=== PATIENT | female | born 1945 | race Caucasian/White ===

== ENCOUNTER 2020-08-01 14:42 | Inpatient (IN) | payer OTHER, MEDICAID ==
[~2020-08-01] VITALS: Ht 160 cm; Wt 93.5 kg
[2020-08-01 18:08] LABS: Basophils # (auto) 0 10 ^3/uL (0-0.2); Basophils % (auto) 0.4 % (0.0-2.0); Eosinophils # (auto) 0 10 ^3/uL (0-0.8); Eosinophils % (auto) 0.1 % (0.0-7.0); Hematocrit 40.9 % (36.0-46.0); Hemoglobin 13.6 g/dL (12.2-16.2); Lymphocytes % (auto) 29.1 % (10.0-50.0); Mean Corpuscular Hemoglobin 30.9 pg (28.0-32.0); Mean Corpuscular Hgb Conc. 33.3 g/dL (32.0-36.0); Mean Corpuscular Volume 92.7 fL (80.0-100.0); Monocytes # (auto) 0.4 10 ^3/uL (0-1.3); Monocytes % (auto) 11.6 % (0.0-12.0); Neutrophils % (auto) 58.8 % (37.0-80.0); Nucleated Red Blood Cells % 0.5 %; Platelet Count (auto) 157 10^3/uL (140-450); Red Blood Cells 4.41 10^6/uL (4.0-5.20); Red Cell Distribution Width 12.9 % (11.8-14.3); White Blood Cell 3.4 10^3/uL (4.4-10.8)
[2020-08-01 18:30] LABS: Alanine Aminotransferase 22 U/L (13-56); Albumin 3.4 g/dL (3.4-5.0); Anion Gap 9 (5-15); Aspartate Aminotransferase 18 U/L (15-37); Blood Urea Nitrogen 16 mg/dL (7-18); Calcium 8.7 mg/dL (8.5-10.1); Carbon Dioxide 28 mmol/L (21-32); Chloride 99 mmol/L (98-107); GFR African American 70 mL/min; GFR Non-African American 57 mL/min; Glucose 77 mg/dL (74-106); Potassium 3.3 mmol/L (3.5-5.1); Sodium 136 mmol/L (136-145)
[2020-08-01 18:34] LABS: Alkaline Phosphatase 65 U/L (45-117); Bilirubin, Total 0.4 mg/dL (0.2-1.0); Total Protein 7.4 g/dL (6.4-8.2)
[2020-08-02] MEDS ORDERED: MORPHINE SULF INJ 2 MG/ML SYRINGE 1ML IV PRN (00:45)
[2020-08-02] MEDS ORDERED: ACETAMINOPHEN 325 MG TAB PO PRN (00:45)
[2020-08-02] MEDS ORDERED: NITROGLYCERIN 0.4 MG SL TAB SL PRN (00:45)
[2020-08-02] MEDS ORDERED: ONDANSETRON HCL 4 MG/2 ML VIAL IV PRN (00:45)
[2020-08-02] MEDS ORDERED: IPRATROPIUM BROM 0.5 MG/2.5ML INH SOL NEB PRN (02:45)
[2020-08-02] MEDS ORDERED: ALBUTEROL SULF 2.5 MG/0.5ML(0.5%) NEB SOLN NEB PRN (02:45)
[2020-08-02 02:48] LABS: Urine Bacteria NONE SEEN /hpf (None Seen); Urine Blood Negative /uL (Negative); Urine Mucus FEW (None Seen); Urine Specific Gravity 1.025 (1.001-1.035); Urine WBC 5 /hpf (0 - 5)
[2020-08-02 08:00] VITALS: BP 118/56
[2020-08-02] MEDS ORDERED: ENOXAPARIN SOD 40 MG/0.4 ML SYRINGE SC SCH (10:00)
[2020-08-02] MEDS ORDERED: methylPREDNISolone SOD SUCC 40 MG/ML VL IV SCH (10:00)
[2020-08-02] MEDS: cefTRIAXone 1GM/50ML D5W 50 ML IV SCH (11:48)
[2020-08-02] MEDS: AZITHROMYCIN 500MG/ 250ML 250 ML IV SCH (11:50)
[2020-08-02] MEDS ORDERED: ENOXAPARIN SOD 80 MG/0.8ML SYRINGE SC ONE (13:15)
[2020-08-02] MEDS ORDERED: ZINC SULFATE 220mg CAP or TAB PO ONE (13:15)
[2020-08-02] MEDS ORDERED: POTASSIUM CHL 20MEQ/100ML 100 ML IV ONE ×2 (13:15→17:08)
[2020-08-02 14:39] LABS: Basophils # (auto) 0 10 ^3/uL (0-0.2); Basophils % (auto) 0.1 % (0.0-2.0); Eosinophils # (auto) 0 10 ^3/uL (0-0.8); Hematocrit 37.7 % (36.0-46.0); Hemoglobin 12.9 g/dL (12.2-16.2); Lymphocytes # (auto) 0.8 10 ^3/uL (0.4-5.4); Lymphocytes % (auto) 18.6 % (10.0-50.0); Mean Corpuscular Hemoglobin 31.4 pg (28.0-32.0); Mean Corpuscular Hgb Conc. 34.1 g/dL (32.0-36.0); Mean Corpuscular Volume 92.2 fL (80.0-100.0); Monocytes # (auto) 0.4 10 ^3/uL (0-1.3); Monocytes % (auto) 8.5 % (0.0-12.0); Neutrophils % (auto) 72.8 % (37.0-80.0); Platelet Count (auto) 157 10^3/uL (140-450); Red Blood Cells 4.09 10^6/uL (4.0-5.20); Red Cell Distribution Width 12.8 % (11.8-14.3); White Blood Cell 4.2 10^3/uL (4.4-10.8)
[2020-08-02 15:05] LABS: BUN/Creatinine Ratio 17.4; Calcium 8.6 mg/dL (8.5-10.1)
[2020-08-02] MEDS: ALBUTEROL SULF HFA 90MCG INH 200DOSE IN SCH ×2 (15:26→22:00)
[2020-08-02 15:31] LABS: Potassium 2.7 mmol/L (3.5-5.1)
[2020-08-02] MEDS: POTASSIUM CHL 20MEQ/100ML 100 ML IV SCH ×2 (17:25→21:06)
[2020-08-02 20:50] VITALS: BP 149/70
[2020-08-02 21:00] VITALS: BP 149/70
[2020-08-02] MEDS: ASCORBIC ACID 500 MG TAB PO SCH (21:08)
[2020-08-02] MEDS: ENOXAPARIN SOD 40 MG/0.4 ML SYRINGE SC SCH (21:21)
[2020-08-02] MEDS ORDERED: BUDESONIDE (INHALATION) 0.5 MG/2 ML NEB NEB SCH (22:00)
[2020-08-02] MEDS: BUDESONIDE (INHALATION) 180 MCG IH IN SCH (22:00)
[2020-08-03 05:00] VITALS: BP 126/55
[2020-08-03] MEDS: BUDESONIDE (INHALATION) 180 MCG IH IN SCH ×2 (06:47→21:29)
[2020-08-03] MEDS: ALBUTEROL SULF HFA 90MCG INH 200DOSE IN SCH ×3 (06:47→21:28)
[2020-08-03 07:12] LABS: Basophils # (auto) 0 10 ^3/uL (0-0.2); Basophils % (auto) 0.1 % (0.0-2.0); Eosinophils # (auto) 0 10 ^3/uL (0-0.8); Hematocrit 36.3 % (36.0-46.0); Hemoglobin 12.1 g/dL (12.2-16.2); Lymphocytes # (auto) 0.9 10 ^3/uL (0.4-5.4); Lymphocytes % (auto) 20.7 % (10.0-50.0); Mean Corpuscular Hemoglobin 30.7 pg (28.0-32.0); Mean Corpuscular Hgb Conc. 33.3 g/dL (32.0-36.0); Mean Corpuscular Volume 92.2 fL (80.0-100.0); Monocytes # (auto) 0.6 10 ^3/uL (0-1.3); Neutrophils % (auto) 66.2 % (37.0-80.0); Platelet Count (auto) 172 10^3/uL (140-450); Red Blood Cells 3.94 10^6/uL (4.0-5.20); Red Cell Distribution Width 13.1 % (11.8-14.3); White Blood Cell 4.5 10^3/uL (4.4-10.8)
[2020-08-03 07:27] LABS: Calcium 8.5 mg/dL (8.5-10.1); Magnesium 2.1 mg/dL (1.6-2.6)
[2020-08-03 07:45] LABS: BUN/Creatinine Ratio 21.3; Phosphorus 2.1 mg/dL (2.5-4.90)
[2020-08-03 09:00] VITALS: BP 108/52
[2020-08-03] MEDS: DexAMETHasone SOD PHOS 10MG/1ML VIAL INJ IV SCH (11:25)
[2020-08-03] MEDS: cefTRIAXone 1GM/50ML D5W 50 ML IV SCH (11:26)
[2020-08-03] MEDS: AZITHROMYCIN 500MG/ 250ML 250 ML IV SCH (11:26)
[2020-08-03] MEDS: ZINC SULFATE 220mg CAP or TAB PO SCH (11:27)
[2020-08-03] MEDS: ASCORBIC ACID 500 MG TAB PO SCH ×2 (11:27→22:04)
[2020-08-03] MEDS: CHOLECALCIFEROL (VITD3) 2,000 UNIT CAP PO SCH (11:36)
[2020-08-03] MEDS: ENOXAPARIN SOD 40 MG/0.4 ML SYRINGE SC SCH (11:36)
[2020-08-03 13:00] VITALS: BP 117/51
[2020-08-03 17:00] VITALS: BP 112/49
[2020-08-03] MEDS ORDERED: POTA-220 PO (17:03)
[2020-08-03] MEDS ORDERED: GABA300C10 PO (17:03)
[2020-08-03] MEDS ORDERED: SOTA80TA PO (17:03)
[2020-08-03] MEDS ORDERED: OMEP20TA PO (17:03)
[2020-08-03] MEDS ORDERED: APIX5TAB PO (17:03)
[2020-08-03] MEDS ORDERED: IBUP800T24 PO (17:03)
[2020-08-03] MEDS ORDERED: HYDR25TA4 PO (17:03)
[2020-08-03] MEDS ORDERED: OXYB5TAB24 PO (17:03)
[2020-08-03] MEDS ORDERED: SERT-274 PO (17:03)
[2020-08-03] MEDS ORDERED: FLUT0.05 NAS (17:03)
[2020-08-03] MEDS ORDERED: REMDESIVIR 200 MG in NS 210ml LOADING DOSE ADULT IV ONE (18:00)
[2020-08-03] MEDS ORDERED: ACETAMINOPHEN 325 MG TAB PO PRN (19:15)
[2020-08-03] MEDS ORDERED: HYDROcodone-ACET 5/325MG TAB PO PRN (19:15)
[2020-08-03 21:00] VITALS: BP 115/60
[2020-08-03] MEDS: OXYBUTYNIN CHL 5 MG TAB PO SCH (22:03)
[2020-08-03] MEDS: APIXABAN 5 MG TAB PO SCH (22:04)
[2020-08-04] MEDS: SOTALOL HCL 80 MG TAB PO SCH ×3 (02:26→21:50)
[2020-08-04 05:00] VITALS: BP 129/62
[2020-08-04] MEDS: BUDESONIDE (INHALATION) 180 MCG IH IN SCH ×2 (07:15→22:08)
[2020-08-04] MEDS: ALBUTEROL SULF HFA 90MCG INH 200DOSE IN SCH ×3 (07:15→22:08)
[2020-08-04 07:36] LABS: Basophils # (auto) 0 10 ^3/uL (0-0.2); Eosinophils # (auto) 0 10 ^3/uL (0-0.8); Hematocrit 35.6 % (36.0-46.0); Lymphocytes # (auto) 0.9 10 ^3/uL (0.4-5.4); Lymphocytes % (auto) 16.1 % (10.0-50.0); Mean Corpuscular Hemoglobin 31.2 pg (28.0-32.0); Mean Corpuscular Hgb Conc. 33.8 g/dL (32.0-36.0); Mean Corpuscular Volume 92.5 fL (80.0-100.0); Monocytes # (auto) 0.6 10 ^3/uL (0-1.3); Monocytes % (auto) 11.7 % (0.0-12.0); Neutrophils # (auto) 3.8 10 ^3/uL (1.6-8.6); Neutrophils % (auto) 72.2 % (37.0-80.0); Nucleated Red Blood Cells % 0.1 %; Platelet Count (auto) 191 10^3/uL (140-450); Red Blood Cells 3.85 10^6/uL (4.0-5.20); Red Cell Distribution Width 13.2 % (11.8-14.3); White Blood Cell 5.3 10^3/uL (4.4-10.8)
[2020-08-04 08:07] LABS: BUN/Creatinine Ratio 19.7; Calcium 8.5 mg/dL (8.5-10.1); Magnesium 2.2 mg/dL (1.6-2.6); Phosphorus 2.8 mg/dL (2.5-4.90); Potassium 3.4 mmol/L (3.5-5.1)
[2020-08-04 09:00] VITALS: BP 121/58
[2020-08-04] MEDS: cefTRIAXone 1GM/50ML D5W 50 ML IV SCH (09:00)
[2020-08-04] MEDS: ASCORBIC ACID 500 MG TAB PO SCH ×2 (10:00→21:57)
[2020-08-04] MEDS: GABAPENTIN 300 MG CAP PO SCH (10:00)
[2020-08-04] MEDS: OXYBUTYNIN CHL 5 MG TAB PO SCH ×2 (10:00→21:50)
[2020-08-04] MEDS: AZITHROMYCIN 500MG/ 250ML 250 ML IV SCH (10:00)
[2020-08-04] MEDS: DexAMETHasone SOD PHOS 10MG/1ML VIAL INJ IV SCH (10:00)
[2020-08-04] MEDS: ZINC SULFATE 220mg CAP or TAB PO SCH (10:00)
[2020-08-04] MEDS: APIXABAN 5 MG TAB PO SCH ×2 (10:00→21:50)
[2020-08-04] MEDS: SERTRALINE HCL 50 MG TAB PO SCH (10:00)
[2020-08-04] MEDS: CHOLECALCIFEROL (VITD3) 2,000 UNIT CAP PO SCH (10:00)
[2020-08-04] MEDS: PANTOPRAZOLE 40 MG TAB PO SCH (10:00)
[2020-08-04] MEDS ORDERED: PANT40T PO (12:16)
[2020-08-04] MEDS ORDERED: ZINC220C8 PO (12:16)
[2020-08-04] MEDS ORDERED: AZIT500T66 PO (12:16)
[2020-08-04] MEDS ORDERED: CHOL1CAP47 PO (12:16)
[2020-08-04] MEDS ORDERED: DEXA6TAB6 PO (12:16)
[2020-08-04] MEDS ORDERED: ASCO500T11 PO (12:16)
[2020-08-04] MEDS ORDERED: ALBUAER3 IN (12:16)
[2020-08-04 13:00] VITALS: BP 124/62
[2020-08-04 17:00] VITALS: BP 112/54
[2020-08-04] MEDS: REMDESIVIR 100mg in NS 230ml DAILYx4DAYS (NO VENT) IV SCH (17:00)
[2020-08-04 22:00] VITALS: BP 120/70
[2020-08-05 05:00] VITALS: BP 122/62
[2020-08-05] MEDS: ALBUTEROL SULF HFA 90MCG INH 200DOSE IN SCH ×2 (07:07→13:39)
[2020-08-05] MEDS: BUDESONIDE (INHALATION) 180 MCG IH IN SCH (07:07)
[2020-08-05 08:00] LABS: Potassium 3.3 mmol/L (3.5-5.1)
[2020-08-05] MEDS ORDERED: POTASSIUM EFFERVESENT TAB 25 MEQ PO ONE (08:00)
[2020-08-05 08:02] LABS: Basophils # (auto) 0 10 ^3/uL (0-0.2); Basophils % (auto) 0.1 % (0.0-2.0); Eosinophils # (auto) 0 10 ^3/uL (0-0.8); Lymphocytes # (auto) 1.1 10 ^3/uL (0.4-5.4); Lymphocytes % (auto) 25.2 % (10.0-50.0); Mean Corpuscular Hemoglobin 31.7 pg (28.0-32.0); Mean Corpuscular Hgb Conc. 34.3 g/dL (32.0-36.0); Mean Corpuscular Volume 92.5 fL (80.0-100.0); Monocytes # (auto) 0.7 10 ^3/uL (0-1.3); Monocytes % (auto) 14.9 % (0.0-12.0); Neutrophils # (auto) 2.7 10 ^3/uL (1.6-8.6); Neutrophils % (auto) 59.8 % (37.0-80.0); Nucleated Red Blood Cells % 0.1 %; Platelet Count (auto) 202 10^3/uL (140-450); Red Blood Cells 3.79 10^6/uL (4.0-5.20); Red Cell Distribution Width 13.2 % (11.8-14.3); White Blood Cell 4.5 10^3/uL (4.4-10.8)
[2020-08-05 08:06] LABS: Magnesium 2.2 mg/dL (1.6-2.6); Phosphorus 2.3 mg/dL (2.5-4.90)
[2020-08-05 08:07] LABS: Albumin 2.6 g/dL (3.4-5.0); BUN/Creatinine Ratio 19.2; Bilirubin, Total 0.3 mg/dL (0.2-1.0); Calcium 8.3 mg/dL (8.5-10.1); Total Protein 5.5 g/dL (6.4-8.2)
[2020-08-05] MEDS: cefTRIAXone 1GM/50ML D5W 50 ML IV SCH (09:03)
[2020-08-05] MEDS: DexAMETHasone SOD PHOS 10MG/1ML VIAL INJ IV SCH (09:03)
[2020-08-05 09:04] VITALS: BP 122/62
[2020-08-05] MEDS: SOTALOL HCL 80 MG TAB PO SCH (09:04)
[2020-08-05] MEDS: AZITHROMYCIN 500MG/ 250ML 250 ML IV SCH (09:04)
[2020-08-05] MEDS: ZINC SULFATE 220mg CAP or TAB PO SCH (09:04)
[2020-08-05] MEDS: GABAPENTIN 300 MG CAP PO SCH (09:05)
[2020-08-05] MEDS: OXYBUTYNIN CHL 5 MG TAB PO SCH (09:05)
[2020-08-05] MEDS: APIXABAN 5 MG TAB PO SCH (09:05)
[2020-08-05] MEDS: SERTRALINE HCL 50 MG TAB PO SCH (09:05)
[2020-08-05] MEDS: PANTOPRAZOLE 40 MG TAB PO SCH (09:05)
[2020-08-05] MEDS: CHOLECALCIFEROL (VITD3) 2,000 UNIT CAP PO SCH (09:06)
[2020-08-05 09:18] VITALS: BP 120/59
[2020-08-05] MEDS: ASCORBIC ACID 500 MG TAB PO SCH (10:00)
[2020-08-05 13:00] VITALS: BP 132/61
[2020-08-05] MEDS: REMDESIVIR 100mg in NS 230ml DAILYx4DAYS (NO VENT) IV SCH (17:16)
== END 2020-08-05 21:23 | disposition home health service (06) | DRG 177 ==
LOC: EDBD 14:42 → ER 14:42 → TELE 14:43 → TELE-E-ADS 08-02 20:21
PROVIDERS: ADMIT Internal Medicine; ATTEND Internal Medicine
PROC: XW033E5 Introduction of Remdesivir Anti-infective into Peripheral Vein, Percutaneous Approach, New Technology Group 5 (ICD-10-PCS; principal; 2020-08-03)
DX: U07.1 COVID-19 (principal); J12.89 Other viral pneumonia; J96.11 Chronic respiratory failure with hypoxia; J44.1 Chronic obstructive pulmonary disease with (acute) exacerbation; J98.11 Atelectasis; R64 Cachexia; J44.0 Chronic obstructive pulmonary disease with (acute) lower respiratory infection; J45.901 Unspecified asthma with (acute) exacerbation; Z68.1 Body mass index [BMI] 19.9 or less, adult; I10 Essential (primary) hypertension; E78.5 Hyperlipidemia, unspecified; I48.0 Paroxysmal atrial fibrillation; K44.9 Diaphragmatic hernia without obstruction or gangrene; F32.9 Major depressive disorder, single episode, unspecified; I67.2 Cerebral atherosclerosis; E87.6 Hypokalemia; I70.0 Atherosclerosis of aorta; I25.10 Atherosclerotic heart disease of native coronary artery without angina pectoris; Z90.710 Acquired absence of both cervix and uterus; Z79.899 Other long term (current) drug therapy; Z88.0 Allergy status to penicillin; Z90.49 Acquired absence of other specified parts of digestive tract; Z99.81 Dependence on supplemental oxygen
CPT/HCPCS: 36415; 36600; 70450; 71045; 71250; 80048; 80053; 81001; 82805; 83605; 83735; 84100; 84484; 85025; 85379; 86141; 87426; 93005; 94640; 96361; 96365; 96368; 96372; G0378; J0696; J1100; J3480

== ENCOUNTER 2024-07-07 19:16 | Inpatient (IN) | payer OTHER, MEDICAID ==
[~2024-07-07] VITALS: Ht 172.7 cm; Wt 94.6 kg
[~2024-07-07 19:16] MED LIST: ALBUAER3 IN; APIX5TAB PO; CHOL1CAP47 PO; CYCL-614 PO; GABA-1250 PO; HYDR-4902 PO; HYDR25TA4 PO; IBU600T PO; LEVO500T91 PO; NALO1TAB4 PO; OXYB5TAB24 PO; PANT40T PO; POTA-220 PO; SERT-206 PO; SOTA80TA PO; VITA400T4 PO
[2024-07-07 20:23] LABS: Basophils # (auto) 0 10 ^3/uL (0-0.2); Basophils % (auto) 0.2 % (0.0-2.0); Eosinophils # (auto) 0.1 10 ^3/uL (0-0.8); Eosinophils % (auto) 1.8 % (0.0-7.0); Hematocrit 35.4 % (36.0-46.0); Hemoglobin 11.6 g/dL (12.2-16.2); Lymphocytes % (auto) 29.8 % (10.0-50.0); Mean Corpuscular Hemoglobin 30.3 pg (28.0-32.0); Mean Corpuscular Hgb Conc. 32.7 g/dL (32.0-36.0); Mean Corpuscular Volume 92.6 fL (80.0-100.0); Monocytes # (auto) 0.8 10 ^3/uL (0-1.3); Monocytes % (auto) 11.2 % (0.0-12.0); Neutrophils # (auto) 3.9 10 ^3/uL (1.6-8.6); Platelet Count (auto) 247 10^3/uL (140-450); Red Blood Cells 3.82 10^6/uL (4.0-5.20); White Blood Cell 6.8 10^3/uL (4.4-10.8)
[2024-07-07 20:41] LABS: Alanine Aminotransferase 16 U/L (7-40); Alkaline Phosphatase 69 U/L (46-116); Anion Gap 7 (5-15); Aspartate Aminotransferase 9 U/L (13-40); BUN/Creatinine Ratio 22.2 (10.0-20.0); Blood Urea Nitrogen 24 mg/dL (9-23); Calcium 9.8 mg/dL (8.7-10.4); Carbon Dioxide 27 mmol/L (20-31); Chloride 100 mmol/L (98-107); Glucose 99 mg/dL (74-106); Magnesium 1.9 mg/dL (1.6-2.6); Potassium 3.8 mmol/L (3.5-5.1); Sodium 134 mmol/L (136-145)
[2024-07-07 20:42] LABS: Bilirubin, Total 0.3 mg/dL (0.2-1.0); Total Protein 6.4 g/dL (5.7-8.2)
[2024-07-07 20:44] LABS: INR 1.03 (0.9-1.15); Partial Thromboplastin Time 25.7 SEC (24.5-34.5); Prothrombin Time 10.9 sec (9.3-11.8)
[2024-07-07 21:38] LABS: Urine Bacteria None Seen /hpf (None Seen)
[2024-07-07 21:47] LABS: Urine Blood Negative /uL (Negative); Urine Clarity Clear (Clear); Urine Color Light-Yellow (Yellow); Urine Protein, UAD Negative (Negative); Urine Specific Gravity 1.017 (1.001-1.035); Urine Urobilinogen Normal (Negative); Urine WBC 3 /hpf (0 - 5)
[2024-07-07] MEDS ORDERED: MORPHINE SULFATE INJ 2 MG/ml SYRG IV PRN (23:00)
[2024-07-07] MEDS ORDERED: ONDANSETRON HCL 4 MG/2 ML VIAL IV PRN (23:00)
[2024-07-07] MEDS ORDERED: NITROGLYCERIN 0.4 MG SL TAB SL PRN (23:00)
[2024-07-07] MEDS ORDERED: ACETAMINOPHEN 325 MG TAB PO PRN (23:00)
[2024-07-07] MEDS: HYDROcodone-ACET 5/325MG TAB PO PRN (23:26)
[2024-07-08] VITALS (13 sets, daily range): BP systolic 112–142; BP diastolic 62–82; PULSE 54–117; RESP 16–18; TEMP 97.4–98.1; O2SAT 90–100
[2024-07-08] MEDS: SODIUM CHLORIDE 0.9% 1,000 ML IV SCH (02:15)
[2024-07-08] MEDS: SODIUM CHLOR 0.9% PF (SALINE LOCK) 10ML VIAL/SYR IV SCH (06:00)
[2024-07-08] MEDS ORDERED: ENOXAPARIN SOD 40 MG/0.4 ML SYRINGE SC SCH (10:00)
[2024-07-08 10:08] LABS: Alanine Aminotransferase 10 U/L (7-40); Albumin 3.9 g/dL (3.2-4.8); Alkaline Phosphatase 63 U/L (46-116); Anion Gap 8 (5-15); Aspartate Aminotransferase 10 U/L (13-40); Carbon Dioxide 27 mmol/L (20-31); Chloride 100 mmol/L (98-107); Glucose 123 mg/dL (74-106); Potassium 3.2 mmol/L (3.5-5.1); Sodium 135 mmol/L (136-145); Total Protein 6.5 g/dL (5.7-8.2)
[2024-07-08 10:09] LABS: BUN/Creatinine Ratio 18.9 (10.0-20.0); Blood Urea Nitrogen 20 mg/dL (9-23); Cholesterol 162 mg/dL (< 200); LDL Cholesterol 97 mg/dL (< 100); Magnesium 1.9 mg/dL (1.6-2.6); Triglycerides 144 mg/dL (< 150)
[2024-07-08 10:10] LABS: HDL Cholesterol 51 mg/dL (40-59)
[2024-07-08 10:11] LABS: Bilirubin, Total 0.8 mg/dL (0.2-1.0)
[2024-07-08 10:16] LABS: Amphetamine Screen, Urine Neg (NEGATIVE); Barbiturate Scree,Urine Neg (NEGATIVE); Benzodiazephine Screen, Urine Neg (NEGATIVE); Cocaine Screen, Urine Neg (NEGATIVE)
[2024-07-08 10:17] LABS: Cannabinoid Screen, Urine Neg (NEGATIVE); Opiate Scree,Urine Neg (NEGATIVE); Phencyclidine Screen, Urine Neg (NEGATIVE)
[2024-07-08 10:18] LABS: Basophils # (auto) 0 10 ^3/uL (0-0.2); Basophils % (auto) 0.5 % (0.0-2.0); Eosinophils # (auto) 0.1 10 ^3/uL (0-0.8); Hematocrit 35.4 % (36.0-46.0); Hemoglobin 11.9 g/dL (12.2-16.2); Lymphocytes # (auto) 2.5 10 ^3/uL (0.4-5.4); Lymphocytes % (auto) 39.4 % (10.0-50.0); Mean Corpuscular Hemoglobin 30.9 pg (28.0-32.0); Mean Corpuscular Hgb Conc. 33.6 g/dL (32.0-36.0); Mean Corpuscular Volume 92.1 fL (80.0-100.0); Monocytes # (auto) 0.6 10 ^3/uL (0-1.3); Monocytes % (auto) 10.3 % (0.0-12.0); Neutrophils % (auto) 47.8 % (37.0-80.0); Nucleated Red Blood Cells % 0.1 %; Platelet Count (auto) 234 10^3/uL (140-450); Red Blood Cells 3.84 10^6/uL (4.0-5.20); Red Cell Distribution Width 14.2 % (11.8-14.3); White Blood Cell 6.2 10^3/uL (4.4-10.8)
[2024-07-08] MEDS: APIXABAN 5 MG TAB PO SCH (10:28)
[2024-07-08] MEDS: methylPREDNISolone SOD SUCC 40 MG/ML VL IM ONE (19:42)
[2024-07-08] MEDS: MAGNESIUM SULFATE 1GM/100ML 100 ML IV ONE (19:43)
[2024-07-08] MEDS: POTASSIUM EFFERVESENT TAB 25 MEQ GT ONE (19:43)
[2024-07-08] MEDS: AZITHROMYCIN 500MG/ 250ML 250 ML IV ONE (21:03)
[2024-07-08] MEDS: POTASSIUM CHL 20MEQ/100ML 100 ML IV SCH (23:24)
[2024-07-09] VITALS (16 sets, daily range): BP systolic 65–148; BP diastolic 23–89; PULSE 87–117; RESP 16–20; TEMP 97.4–97.9; O2SAT 90–100
[2024-07-09 00:56] LABS: COVID19 ANTIGEN SOFIA FIA NEGATIVE (NEGATIVE)
[2024-07-09] MEDS: IPRATROPIUM BROM 0.5 MG/2.5ML INH SOL NEB PRN (07:14)
[2024-07-09] MEDS: ALBUTEROL SULF 2.5 MG/0.5ML(0.5%) NEB SOLN NEB PRN (07:15)
[2024-07-09 07:57] LABS: Basophils # (auto) 0 10 ^3/uL (0-0.2); Basophils % (auto) 0.2 % (0.0-2.0); Eosinophils # (auto) 0 10 ^3/uL (0-0.8); Hematocrit 37.3 % (36.0-46.0); Hemoglobin 12.7 g/dL (12.2-16.2); Lymphocytes # (auto) 1.4 10 ^3/uL (0.4-5.4); Mean Corpuscular Hgb Conc. 33.9 g/dL (32.0-36.0); Mean Corpuscular Volume 91.6 fL (80.0-100.0); Monocytes # (auto) 0.5 10 ^3/uL (0-1.3); Monocytes % (auto) 6.9 % (0.0-12.0); Neutrophils # (auto) 5.5 10 ^3/uL (1.6-8.6); Neutrophils % (auto) 73.9 % (37.0-80.0); Nucleated Red Blood Cells % 0.1 %; Platelet Count (auto) 253 10^3/uL (140-450); Red Blood Cells 4.08 10^6/uL (4.0-5.20); Red Cell Distribution Width 14.1 % (11.8-14.3); White Blood Cell 7.4 10^3/uL (4.4-10.8)
[2024-07-09 08:00] LABS: Anion Gap 9 (5-15); Calcium 10.3 mg/dL (8.7-10.4); Carbon Dioxide 23 mmol/L (20-31); Chloride 103 mmol/L (98-107); Potassium 4.4 mmol/L (3.5-5.1); Sodium 135 mmol/L (136-145)
[2024-07-09] MEDS: POTASSIUM CHL 20MEQ/100ML 100 ML IV ONE (08:05)
[2024-07-09 08:06] LABS: BUN/Creatinine Ratio 16.8 (10.0-20.0); Blood Urea Nitrogen 17 mg/dL (9-23); Glucose 130 mg/dL (74-106)
[2024-07-09] MEDS: methylPREDNISolone SOD SUCC 40 MG/ML VL IV SCH (10:48)
[2024-07-09] MEDS: AZITHROMYCIN 500MG/ 250ML 250 ML IV SCH (10:48)
[2024-07-09] MEDS ORDERED: AZIT500T66 PO (15:36)
[2024-07-09] MEDS ORDERED: PRED20TA2 PO (15:36)
[2024-07-10 01:00] VITALS: BP 132/74; PULSE 96; RESP 18; TEMP 98; O2SAT 97
[2024-07-10 05:00] VITALS: BP 122/75; PULSE 99; RESP 18; TEMP 98.2; O2SAT 94
[2024-07-10 06:28] LABS: Basophils # (auto) 0 10 ^3/uL (0-0.2); Basophils % (auto) 0.4 % (0.0-2.0); Eosinophils # (auto) 0 10 ^3/uL (0-0.8); Eosinophils % (auto) 0.5 % (0.0-7.0); Hematocrit 32.8 % (36.0-46.0); Lymphocytes # (auto) 2.9 10 ^3/uL (0.4-5.4); Lymphocytes % (auto) 28.1 % (10.0-50.0); Mean Corpuscular Hemoglobin 31.1 pg (28.0-32.0); Mean Corpuscular Hgb Conc. 33.6 g/dL (32.0-36.0); Mean Corpuscular Volume 92.7 fL (80.0-100.0); Monocytes # (auto) 1.1 10 ^3/uL (0-1.3); Monocytes % (auto) 10.3 % (0.0-12.0); Neutrophils # (auto) 6.2 10 ^3/uL (1.6-8.6); Neutrophils % (auto) 60.7 % (37.0-80.0); Nucleated Red Blood Cells % 0.1 %; Platelet Count (auto) 220 10^3/uL (140-450); Red Blood Cells 3.54 10^6/uL (4.0-5.20); White Blood Cell 10.3 10^3/uL (4.4-10.8)
[2024-07-10 06:31] LABS: Calcium 9.6 mg/dL (8.7-10.4); Chloride 108 mmol/L (98-107); Potassium 3.6 mmol/L (3.5-5.1); Sodium 139 mmol/L (136-145)
[2024-07-10 06:32] LABS: Anion Gap 8 (5-15); Carbon Dioxide 23 mmol/L (20-31)
[2024-07-10 06:37] LABS: BUN/Creatinine Ratio 12.8 (10.0-20.0); Blood Urea Nitrogen 12 mg/dL (9-23); Glucose 93 mg/dL (74-106)
[2024-07-10 06:38] LABS: Magnesium 2.1 mg/dL (1.6-2.6)
[2024-07-10 08:00] VITALS: PULSE 92; PULSE 94; RESP 17; O2SAT 93
[2024-07-10 08:43] VITALS: O2SAT 95
[2024-07-10 09:00] VITALS: BP 129/82; PULSE 94; RESP 17; TEMP 97.7; O2SAT 93
[2024-07-10 10:00] VITALS: O2SAT 93
[2024-07-10] MEDS: AZITHROMYCIN 250 MG TAB PO SCH (10:34)
[2024-07-10] MEDS: predniSONE 20 MG TAB PO SCH (10:34)
[2024-07-10] MEDS: METOPROLOL SUCCINATE XL 50 MG TAB PO ONE (10:35)
[2024-07-10] MEDS ORDERED: METO25TA93 PO (16:40)
[2024-07-11] MEDS ORDERED: METOPROLOL SUCCINATE XL 50 MG TAB PO SCH (10:00)
== END 2024-07-10 13:23 | disposition home health service (06) | DRG 189 ==
LOC: ER 19:16 → TELE 22:47 → TELE-WESTW 07-08 04:30
PROVIDERS: ADMIT Internal Medicine; ATTEND Internal Medicine
DX: J96.21 Acute and chronic respiratory failure with hypoxia (principal); I50.33 Acute on chronic diastolic (congestive) heart failure; N17.0 Acute kidney failure with tubular necrosis; J44.1 Chronic obstructive pulmonary disease with (acute) exacerbation; I48.20 Chronic atrial fibrillation, unspecified; D68.69 Other thrombophilia; E87.1 Hypo-osmolality and hyponatremia; I11.0 Hypertensive heart disease with heart failure; Z20.822 Contact with and (suspected) exposure to COVID-19; E78.5 Hyperlipidemia, unspecified; I25.9 Chronic ischemic heart disease, unspecified; E87.6 Hypokalemia; I95.9 Hypotension, unspecified; E83.42 Hypomagnesemia; G89.29 Other chronic pain; M13.842 Other specified arthritis, left hand; Z85.3 Personal history of malignant neoplasm of breast; Z79.01 Long term (current) use of anticoagulants; Z90.11 Acquired absence of right breast and nipple; Z90.49 Acquired absence of other specified parts of digestive tract; Z90.710 Acquired absence of both cervix and uterus; Z99.81 Dependence on supplemental oxygen; Z83.3 Family history of diabetes mellitus; Z82.49 Family history of ischemic heart disease and other diseases of the circulatory system; Z82.5 Family history of asthma and other chronic lower respiratory diseases; Z88.0 Allergy status to penicillin; Z79.899 Other long term (current) drug therapy
CPT/HCPCS: 36415; 70450; 71046; 80048; 80053; 80061; 80307; 81001; 82306; 82607; 83036; 83735; 83880; 84100; 84443; 84484; 85025; 85610; 85730; 87081; 87426; 93005; 93306; 94640; 97163; 99291; G0378; J3480